=== PATIENT | male | born 1960 | race Hispanic/Latino ===

== ENCOUNTER → 2024-05-27 | Outpatient (CLI) | payer OTHER ==
[2024-05-27 22:11] VITALS: PULSE 62; RESP 18
[2024-05-27 23:00] VITALS: PULSE 54; RESP 4
[2024-05-27 23:30] VITALS: PULSE 56; RESP 4
[2024-05-28] VITALS (11 sets, daily range): PULSE 52–70; RESP 2–18
== END | disposition home or self-care (01) ==
LOC: SLP 20:07
PROVIDERS: ATTEND Internal Medicine
DX: G47.30 Sleep apnea, unspecified (principal)
CPT/HCPCS: 95810

== ENCOUNTER → 2024-07-05 | Outpatient (CLI) | payer OTHER ==
[2024-07-05 22:23] VITALS: PULSE 64; RESP 15
[2024-07-05 23:11] VITALS: PULSE 60; RESP 14
[2024-07-05 23:36] VITALS: PULSE 59; RESP 18
[2024-07-05 23:39] VITALS: PULSE 61; RESP 14
[2024-07-06] VITALS (19 sets, daily range): PULSE 59–67; RESP 10–19
== END | disposition home or self-care (01) ==
LOC: SLP 20:35
PROVIDERS: ATTEND Internal Medicine
DX: G47.33 Obstructive sleep apnea (adult) (pediatric) (principal); R06.83 Snoring
CPT/HCPCS: 95811